=== PATIENT | female | born 1995 | race Caucasian/White ===

== ENCOUNTER 2017-05-13 19:57 | Emergency (ER) | END 2017-05-13 22:38 | disposition left against medical advice (07) ==

== ENCOUNTER 2017-05-18 10:55 | Emergency (ER) | END 2017-05-18 16:27 | disposition home or self-care (01) ==

== ENCOUNTER 2017-06-27 15:58 | Emergency (ER) | END 2017-06-27 16:45 | disposition home or self-care (01) ==